=== PATIENT | female | born 1995 | race Two or more races ===

== ENCOUNTER → 2025-05-22 | Outpatient (CLI) | payer OTHER | LOC: M PLARAD 08:21 | PROVIDERS: ATTEND Nurse Practitioner Adult Health | DX: M54.50 Low back pain, unspecified (principal); M51.15 Intervertebral disc disorders with radiculopathy, thoracolumbar region ==

== ENCOUNTER → 2025-08-18 | Outpatient (CLI) | payer OTHER | LOC: M WHC 06:56 | PROVIDERS: ATTEND Nurse Practitioner Adult Health | DX: N94.6 Dysmenorrhea, unspecified (principal) ==